=== PATIENT | female | born 1965 | race Caucasian/White ===

== ENCOUNTER 2021-10-03 16:22 | Inpatient (IN) ==
--- NOTE | 2021-10-03 16:27 | DR.GENAD ---
HPI Time Seen Time Seen by Provider: 10/03/21 16:27 HPI Comment HPI Comment: PATIENT IS 56YR OLD FEMALE IN ER WITH FEVER, NAUSEA, VOMITING AND LEFT FLANK PAIN SINCE THIS AM. PAIN 9/10 RADIATING TO LOWER ABDOMEN. NO DYSURIA. Complaint/Symptoms Chief Complaint Doctors Comments: FEVER, NAUSEA, VOMITING AND LEFT FLANK PAIN SINCE THIS AM. COVID-19 Coronavirus risk:travel/contact w/high risk person: No Has patient experienced Coronavirus symptoms: Yes Coronavirus symptoms experienced: Fever Nurses notes reviewed Nurses Notes Review: Yes Source History Provided: Patient Mode of Arrival Mode of Arrival: Ambulatory Timing Came on: Suddenly Duration Duration: Constant Duration: Hours Location Location: LT FLANK Severity Severity: Moderate Modifying Factors Worsens:: MOVEMENT Improves:: LYING STILL. Associated Signs and Symptoms Associated Signs and Symptoms: NAUSEA. PMH Travel Risk Coronavirus risk:travel/contact w/high risk person: No Has patient experienced Coronavirus symptoms: Yes Coronavirus symptoms experienced: Fever ROS Review of Systems Constitutional: No Symptoms Reported and See HPI; negative Fever, Weakness and Fatigue Eyes: No Symptoms Reported and See HPI ENTM: No Symptoms Reported and See HPI; negative Nose Discharge and Nose Congestion Respiratoy: No Symptoms Reported and See HPI; negative Moist Cough, Short of Breath and Wheezing Cardiovascular: No Symptoms Reported and See HPI; negative Chest Pain Gastrointestinal/Abdominal: See HPI, Nausea and Vomiting; negative Abdominal Pain and Diarrhea Genitourinary: See HPI and Pain (LEFT FLANK PAIN.); negative Dysuria Neurological: No Symptoms Reported and See HPI; negative Headache, Weakness and Dizziness Musculoskeletal: See HPI and Back Pain (LEFT FLANK PAIN.) Integumentary: No Symptoms Reported and See HPI; negative Rash Hematologic/Lymphatic: No Symptoms Reported and See HPI; negative Easy Bruising Endocrine: No Symptoms Reported and See HPI; negative Increased Thirst and I ncreased Urine Psychiatric: No Symptoms Reported and See HPI All Other Systems: Reviewed and Negative PE Vital Signs Vitals: Temperature 103 F Pulse Rate 100 Respiratory Rate 18 Blood Pressure 135/98 O2 Sat by Pulse Oximetry 95 General Limitations: No Limitations General Appearance: Alert and In No Apparent Distress Head Head Exam: Normal Inspection Eyes Eye exam: Normal Appearance; negative Scleral Icterus and Conjunctival Injection ENT ENT Exam: Normal Exam, Normal Oropharynx, Normal External Ear Exam and TM's Normal Bilaterally External Ear Exam: Normal External Inspection; negative Mastoid Tenderness TM/Canal Exam: Bilateral: Normal Nose Exam: Normal Nose Exam Mouth Exam: Normal Inspection; negative Lip Swelling and Tongue Swelling Throat Exam: Normal Inspection; negative Tonsillar Erythema, Tonsillomegaly and Tonsillar Exudate Neck Neck Exam: Normal Inspection and Trachea Midline; negative Tenderness Chest Chest Inspection: Normal Inspection and Symmetric Chest Wall Rise; negative Tenderness Respiratory Respiratory Exam: Normal Lung Sounds Bilat; negative Accessory Muscle Use, Chest Wall Tenderness and Respiratory Distress Respiratory Exam: Bilateral: Clear to Auscultation Cardiovascular Cardiovascular Exam: Regular Rate, Normal Rhythm and Normal Heart Sounds; negative Systolic Murmur and Diastolic Murmur Abdominal Exam Abdominal Exam: Normal Inspection, Normal Bowel Sounds, Soft and Tenderness Abdominal Tenderness: Suprapubic Extremities Extremities Exam: Normal Inspection and Normal Capillary Refill Back Back Exam: Normal Inspection and (L) CVA Tenderness; negative (R) CVA Tenderness Neurologic Neurological Exam: Alert, Oriented X3 and CN II-XII Intact; negative Motor Sensory Deficit Psychiatric Psychiatric Exam: Normal Affect and Normal Mood Skin Skin Exam: Dry MDM Differential Diagnosis Differential Diagnosis: FLANK PAIN, FEVER, KIDNEY STONE, UTI, UROSEPSIS. COURSE Treatment Treatment: SEE ORDERS DONE WHILE PATIENT WAS IN ER. TYLENOL 1GM IVPB, ZOFRAN 4MG IVAND MORPHIN 4MG IV GIVEN IN ER. PAIN IMPROVING. SENT TO [facility] FOR ABD/PELVIC CT. REPORT DISCUSSED WITH PATIENT. PATIENT ADMITED TO HOSPITAL FOR FURTHER MANAGEMENT. Reevaluation 1st: Improved Consultation Consultation Comments: DISCUSSED PATIENT WITH DR. TAVAREZ. HE WILL ADMIT PATIENT. Education/Counseling Education/Counseling: Patient Educated On: Diagnosis and Needs for Follow Up ROR Labs Reviewed Laboratory Results Reviewed?: Yes Result Diagrams: 10/05/21 03:50 10/05/21 03:50 Laboratory: 10/03/21 17:17 Blood Blood Culture - Final Proteus Mirabilis 10/03/21 17:25 Blood Blood Culture - Final Proteus Mirabilis WBC 21.8 X10^3/uL (3.6-10.0) H 10/03/21 17:26 RBC 5.26 X10^6/uL (3.5-5.4) 10/03/21 17:26 Hgb 14.6 g/dL (12.0-16.0) 10/03/21 17:26 Hct 43.9 % (36.0-47.0) 10/03/21 17: MCV 83.5 fL (80.0-100.0) 10/03/21: MCH 27.7 pg (27.0-34.0) 10/03/21: MCHC 33.2 g/dL (33.0-35.0) 10/03/21: RDW 15.4 % (11.6-16.5) 10/03/21: Plt Count 244 X10^3/uL (150.0-450.0) 10/03/21 17: Plt Count Comment Adequate (ADEQUATE) 10/03/21: MPV 7.7 fL (7.4-11.0) 10/03/21: Neut % (Auto) 95.3 % (42.0-75.0) H 10/03/21: Lymph % (Auto) 2.9 % (21.0-51.0) L 10/03/21: [place] % (Auto) 1.5 % (0.0-13.0) 10/03/21: Eos % (Auto) 0.0 % (0.9-2.9) L 10/03/21: Baso % (Auto) 0.3 % (0.2-1.0) 10/03/21: Neut # (Auto) 20.7 x10^3/uL (2.2-4.8) H 10/03/21: Lymph # (Auto) 0.6 X10^3/uL (1.3-2.9) L 10/03/21: [place] # (Auto) 0.3 x10^3/uL (0.3-0.8) 10/03/21: Eos # (Auto) 0.0 x10^3/uL (0.0-0.2) 10/03/21: Baso # (Auto) 0.1 X10^3/uL (0.0-0.1) 10/03/21: Absolute Nucleated RBC 0.1 /100WBC 10/03/21: Total Counted 100 10/03/21 17: Neutrophils % (Manual) 91 % (39-76) H 10/03/21 17:26 Lymphocytes % (Manual) 9 % (13-43) L 10/03/21 17:26 Plt Morphology Comment Normal (NORMAL) 10/03/21 17:26 RBC Morphology Normal (NORMAL) 10/03/21 17:26 Sodium 139 mmol/L (136-145) 10/03/21 17:26 Corrected Sodium 140 mmol/L (136-145) 10/03/21 17:26 Potassium 3.4 mmol/L (3.5-5.1) L 10/03/21 17:26 Chloride 105 mmol/L (98-107) 10/03/21 17:26 Carbon Dioxide 23.4 mmol/L (21-32) 10/03/21 17:26 BUN 15 mg/dL (7-18) 10/03/21 17:26 Creatinine 1.27 mg/dL (0.55-1.02) H 10/03/21 17:26 Est GFR (MDRD) Af Amer 56 (>60) L 10/03/21 17:26 Est GFR (MDRD) Non-Af 46 (>60) L 10/03/21 17:26 Glucose 159 mg/dL (65-99) H 10/03/21 17:26 Lactic Acid 2.4 mmol/L (0.4-2.0) H 10/03/21 17:26 Calcium 8.6 mg/dL (8.5-10.1) 10/03/21 17:26 Corrected Calcium TNP 10/03/21 17:26 Total Bilirubin 0.60 mg/dL (0.2-1.0) 10/03/21 17:26 AST 18 Units/L (15-37) 10/03/21 17:26 ALT 25 Units/L (12-78) 10/03/21 17:26 Alkaline Phosphatase 135 Units/L (46-116) H 10/03/21 17:26 Total Protein 6.9 g/dL (6.4-8.2) 10/03/21 17:26 Albumin 3.4 g/dL (3.4-5.0) 10/03/21 17:26 Globulin 3.5 g/dL (2.5-4.5) 10/03/21 17:26 Albumin/Globulin Ratio 1.0 Ratio (1.1-2.1) L 10/03/21 17: Amylase 49 Units/L (25-115) 10/03/21 17: Lipase 79 Units/L (73-393) 10/03/21 17:26 Specimen Type Clean catch urine 10/03/21 18:33 Urine Color Yellow (YELLOW) 10/03/21 18:33 Urine Appearance Clear (CLEAR) 10/03/21 18: Urine pH 5.0 (5.0 - 8.0) 10/03/21 18:33 Ur Specific [place] 1.015 (1.000-1.030) 10/03/21 18:33 Urine Protein 3+ (NEGATIVE) 10/03/21 18:33 Urine Glucose (UA) Negative (NEGATIVE) 10/03/21 18: Urine Ketones 1+ (NEGATIVE) 10/03/21 18:33 Urine Occult Blood 4+ (NEGATIVE) 10/03/21 18:33 Urine Nitrite Negative (NEGATIVE) 10/03/21 18:33 Urine Bilirubin Negative (NEGATIVE) 10/03/21 18:33 Urine Urobilinogen Normal (NORMAL) 10/03/21 18:33 Ur Leukocyte Esterase Negative (NEGATIVE) 10/03/21 18:33 Urine RBC 10-20 /HPF (0-3) A 10/03/21 18:33 Urine WBC 3-5 /HPF (0-5) 10/03/21 18:33 Ur Squamous Epith Cells Few /HPF (NEGATIVE) 10/03/21 18:33 Urine Bacteria Trace /HPF (NEGATIVE) 10/03/21 18:33 Ur Culture Indicated? No/not indicated 10/03/21 18:33 SARS-CoV-2 (PCR) Negative (NEGATIVE) 10/03/21 17:11 Influenza Type A (PCR) Negative (NEGATIVE) 10/03/21 17:11 Influenza Type B (PCR) Negative (NEGATIVE) 10/03/21 17:11 RSV (PCR) Negative (NEGATIVE) 10/03/21 17:11 Other Results Comments: REPORT OF CT ABD AND PELVIS IS NOTED. PATIENT WAS SENT TO [facility] IN [place] FOR CT. SEE SCAN REPORT ON RECORD. XRAY XRAY Interpreted by: Radiologist (XRAY CHEST REPORT NOTED.) Opioid Opioid Risk Tool Age (Paulo box if 16-45): No History of Preadolescent Sexual Abuse: No Total: 0 Total Score Risk Category: Low Risk Copyright: Aldrich LR predicting aberrant behaviors Diagnosis Discharge Problem: Acute pyelonephritis, Kidney stone, Left flank pain
[2021-10-03 16:29] VITALS: BMI 45.3
[2021-10-03] MEDS ORDERED: ZOFRAN INJ 4 MG VIAL IVP ONE (16:59)
[2021-10-03] MEDS ORDERED: NS 1,000 ML IV 1,000 ML IV ONE (16:59)
[2021-10-03] MEDS ORDERED: OFIRMEV IV 1000 MG VIAL 1,000 MG/100 ML VIAL IV ONE ×2 (17:04→17:08)
[2021-10-03] MEDS ORDERED: ZOFRAN INJ 4 MG VIAL ONE (17:08)
[2021-10-03] MEDS ORDERED: NS 1,000 ML IV 1,000 ML ONE ×2 (17:09→19:32)
[2021-10-03 17:41] LABS: BASOPHILS # (AUTO) 0.1 X10^3/uL (0.0-0.1); BASOPHILS % (AUTO) 0.3 % (0.2-1.0); HEMATOCRIT 43.9 % (36.0-47.0); HEMOGLOBIN 14.6 g/dL (12.0-16.0); LYMPHOCYTES # (AUTO) 0.6 X10^3/uL (1.3-2.9); LYMPHOCYTES % (AUTO) 2.9 % (21.0-51.0); MEAN CORPUSCULAR HEMOGLOBIN 27.7 pg (27.0-34.0); MEAN CORPUSCULAR HGB CONC 33.2 g/dL (33.0-35.0); MEAN CORPUSCULAR VOLUME 83.5 fL (80.0-100.0); MEAN PLATELET VOLUME 7.7 fL (7.4-11.0); MONOCYTES # (AUTO) 0.3 x10^3/uL (0.3-0.8); MONOCYTES % (AUTO) 1.5 % (0.0-13.0); NEUTROPHILS # (AUTO) 20.7 x10^3/uL (2.2-4.8); NEUTROPHILS % (AUTO) 95.3 % (42.0-75.0); RED BLOOD COUNT 5.26 X10^6/uL (3.5-5.4); RED CELL DISTRIBUTION WIDTH 15.4 % (11.6-16.5); WHITE BLOOD COUNT 21.8 X10^3/uL (3.6-10.0)
[2021-10-03 18:05] LABS: PLATELET MORPHOLOGY COMMENT NORMAL (NORMAL)
[2021-10-03] MEDS ORDERED: ZOSYN VIAL 3.375 GRAMS 3.375 G in NS 100 ML IV 100 ML IV ONE (18:51)
[2021-10-03] MEDS ORDERED: MORPHINE SULFATE INJ 4 MG IVP ONE ×2 (18:51→22:35)
[2021-10-03 18:54] LABS: BILIRUBIN,URINE NEGATIVE (NEGATIVE); BLOOD/HEMOGLOBIN,URINE 4+ (NEGATIVE); GLUCOSE, URINE NEGATIVE (NEGATIVE); KETONES,URINE 1+ (NEGATIVE); LEUKOCYTE ESTERASE ,URINE NEGATIVE (NEGATIVE); NITRITES,URINE NEGATIVE (NEGATIVE); PROTEIN,URINE 3+ (NEGATIVE); UROBILINOGEN,URINE NORMAL (NORMAL)
[2021-10-03 18:58] LABS: APPEARANCE,URINE CLEAR (CLEAR); BACTERIA,URINE TRACE /HPF (NEGATIVE); COLOR,URINE YELLOW (YELLOW); SQUAMOUS EPITHELIAL CELL,UR FEW /HPF (NEGATIVE)
[2021-10-03] MEDS ORDERED: MORPHINE SULFATE INJ 4 MG ONE (19:01)
[2021-10-03] MEDS ORDERED: ZOSYN VIAL 3.375 GRAMS IV ONE (19:01)
[2021-10-03] MEDS ORDERED: NS 100 ML IV 100 ML ONE (19:01)
[2021-10-03 19:28] LABS: LACTIC ACID 2.4 mmol/L (0.4-2.0)
[2021-10-03 19:30] LABS: ALANINE AMINOTRANSFERASE 25 Units/L (12-78); ALBUMIN 3.4 g/dL (3.4-5.0); ALKALINE PHOSPHATASE 135 Units/L (46-116); AMYLASE 49 Units/L (25-115); ASPARTATE AMINO TRANSFERASE 18 Units/L (15-37); BLOOD UREA NITROGEN 15 mg/dL (7-18); CALCIUM 8.6 mg/dL (8.5-10.1); CARBON DIOXIDE 23.4 mmol/L (21-32); CHLORIDE 105 mmol/L (98-107); COR NA(FOR HYPERGLY) 140 mmol/L (136-145); CREATININE 1.27 mg/dL (0.55-1.02); LIPASE 79 Units/L (73-393); SODIUM 139 mmol/L (136-145); TOTAL PROTEIN 6.9 g/dL (6.4-8.2); eGFR NON BLACK RACES 46 (>60)
[2021-10-03] MEDS: NS 1,000 ML IV 1,000 ML IV SCH (19:41)
[2021-10-03] MEDS ORDERED: TORADOL 30 MG VIAL IVP ONE (22:41)
[2021-10-03] MEDS ORDERED: TORADOL 30 MG VIAL ONE (22:42)
[2021-10-04] MEDS ORDERED: NS 1,000 ML IV 1,000 ML ONE (04:09)
[2021-10-04] MEDS: NS 1,000 ML IV 1,000 ML IV SCH ×2 (04:15→04:16)
[2021-10-04] MEDS ORDERED: PHARMACY CONSULT - VANCOMYCIN XX SCH (05:00)
[2021-10-04] MEDS ORDERED: ROCEPHIN VIAL 2 GRAMS 2 G in NS 100 ML IV 100 ML IV ONE (05:09)
[2021-10-04] MEDS ORDERED: NS 100 ML IV 100 ML ONE (05:17)
[2021-10-04] MEDS ORDERED: ROCEPHIN VIAL 2 GRAMS ONE (05:17)
--- NOTE | 2021-10-04 05:21 | RAD ---
HISTORYFEVER Relevant Clinical InformationSTUDYCHEST, 1 VIEWCOMPARISONNoneFINDINGSThe trachea is midline. The cardiac silhouette is unremarkable. The lungs are clear without focal infiltrate or effusion. Pulmonary vasculature within normal limits. No pneumothorax. The bony thorax is unremarkable.IMPRESSIONNo acute cardiopulmonary findings .Electronically signed by: Jerry Oropeza (Oct 04, 2021 05:20:19)
[2021-10-04 05:28] LABS: BASOPHILS % (AUTO) 0.1 % (0.2-1.0); HEMATOCRIT 36.9 % (36.0-47.0); HEMOGLOBIN 12.4 g/dL (12.0-16.0); LYMPHOCYTES # (AUTO) 0.7 X10^3/uL (1.3-2.9); MEAN CORPUSCULAR HEMOGLOBIN 27.8 pg (27.0-34.0); MEAN CORPUSCULAR HGB CONC 33.5 g/dL (33.0-35.0); MEAN CORPUSCULAR VOLUME 82.9 fL (80.0-100.0); MEAN PLATELET VOLUME 8.3 fL (7.4-11.0); MONOCYTES # (AUTO) 0.6 x10^3/uL (0.3-0.8); MONOCYTES % (AUTO) 2.7 % (0.0-13.0); NEUTROPHILS # (AUTO) 22.1 x10^3/uL (2.2-4.8); NEUTROPHILS % (AUTO) 94.2 % (42.0-75.0); RED BLOOD COUNT 4.45 X10^6/uL (3.5-5.4); RED CELL DISTRIBUTION WIDTH 15.2 % (11.6-16.5); WHITE BLOOD COUNT 23.5 X10^3/uL (3.6-10.0)
[2021-10-04 06:02] LABS: ALBUMIN 2.8 g/dL (3.4-5.0); CALCIUM 8.3 mg/dL (8.5-10.1); CARBON DIOXIDE 21.7 mmol/L (21-32); COR CA(FOR HYPOALB) 9.3 mg/dL (8.5-10.1); CREATININE 1.87 mg/dL (0.55-1.02)
[2021-10-04] MEDS ORDERED: NS + KCL 20 MEQ/L 1,000 ML IV ONE ×2 (06:11→14:59)
[2021-10-04] MEDS: NS + KCL 20 MEQ/L 1,000 ML IV SCH ×3 (06:13→23:45)
[2021-10-04 06:32] LABS: PLATELET MORPHOLOGY COMMENT NORMAL (NORMAL)
[2021-10-04] MEDS ORDERED: VANCOMYCIN IV *PREMIX 1.5 G/300 ML BAG 1.5 G/300 ML PIGGYBACK IV ONE (08:10)
[2021-10-04] MEDS: VSL#3 PO SCH (08:19)
[2021-10-04] MEDS ORDERED: VANCOMYCIN IV *PREMIX 1.5 G/300 ML BAG 1.5 G/300 ML PIGGYBACK IV SCH (09:00)
[2021-10-04] MEDS ORDERED: VANCOMYCIN IV *PREMIX 1 G/200 ML BAG 1 G/200 ML PIGGYBACK IV SCH (09:00)
[2021-10-04] MEDS ORDERED: VANCOMYCIN IV *PREMIX 2 G/400 ML BAG 2 G/400 ML PIGGYBACK IV SCH (09:00)
[2021-10-04 11:43] LABS: BILIRUBIN,URINE NEGATIVE (NEGATIVE); BLOOD/HEMOGLOBIN,URINE 1+ (NEGATIVE); GLUCOSE, URINE NEGATIVE (NEGATIVE); KETONES,URINE NEGATIVE (NEGATIVE); LEUKOCYTE ESTERASE ,URINE NEGATIVE (NEGATIVE); NITRITES,URINE NEGATIVE (NEGATIVE); PROTEIN,URINE 2+ (NEGATIVE); UROBILINOGEN,URINE NORMAL (NORMAL)
[2021-10-04 12:06] LABS: APPEARANCE,URINE CLEAR (CLEAR); COLOR,URINE YELLOW (YELLOW)
[2021-10-04 12:07] LABS: BACTERIA,URINE TRACE /HPF (NEGATIVE); RBC,URINE 0-2 /HPF (0-3); SQUAMOUS EPITHELIAL CELL,UR NUMEROUS /HPF (NEGATIVE)
[2021-10-04] MEDS ORDERED: OFIRMEV IV 1000 MG VIAL 1,000 MG/100 ML VIAL IV ONE ×2 (13:57→14:15)
[2021-10-04] MEDS ORDERED: TORADOL 30 MG VIAL IVP ONE (18:35)
[2021-10-04] MEDS ORDERED: NS 1,000 ML IV 1,000 ML IV ONE (19:06)
[2021-10-04 20:27] LABS: BASOPHILS # (AUTO) 0.1 X10^3/uL (0.0-0.1); EOSINOPHILS % (AUTO) 0.1 % (0.9-2.9); HEMOGLOBIN 11.7 g/dL (12.0-16.0); MEAN CORPUSCULAR VOLUME 83.2 fL (80.0-100.0); MONOCYTES # (AUTO) 0.8 x10^3/uL (0.3-0.8); RED CELL DISTRIBUTION WIDTH 15.6 % (11.6-16.5)
[2021-10-04 20:31] LABS: BASOPHILS % (AUTO) 0.2 % (0.2-1.0); HEMATOCRIT 34.7 % (36.0-47.0); LYMPHOCYTES # (AUTO) 1.3 X10^3/uL (1.3-2.9); LYMPHOCYTES % (AUTO) 4.6 % (21.0-51.0); MEAN CORPUSCULAR HGB CONC 33.7 g/dL (33.0-35.0); MEAN PLATELET VOLUME 8.5 fL (7.4-11.0); MONOCYTES % (AUTO) 2.9 % (0.0-13.0); NEUTROPHILS % (AUTO) 92.2 % (42.0-75.0); RED BLOOD COUNT 4.18 X10^6/uL (3.5-5.4); WHITE BLOOD COUNT 29.3 X10^3/uL (3.6-10.0)
[2021-10-04 20:32] LABS: CALCIUM 8.2 mg/dL (8.5-10.1); CARBON DIOXIDE 23.1 mmol/L (21-32)
[2021-10-04 20:45] LABS: LACTIC ACID 1.8 mmol/L (0.4-2.0)
[2021-10-04 21:17] LABS: PLATELET MORPHOLOGY COMMENT NORMAL (NORMAL)
[2021-10-04] MEDS: TYLENOL 500 MG TAB EXTRA STRENGTH PO PRN (21:45)
[2021-10-04] MEDS: TOBRAMYCIN SULFATE 120 MG in NS 100 ML IV 100 ML IV SCH (21:47)
[2021-10-04] MEDS: FLOMAX PO SCH (21:47)
[2021-10-05 04:59] LABS: BASOPHILS % (AUTO) 0.1 % (0.2-1.0); EOSINOPHILS # (AUTO) 0.1 x10^3/uL (0.0-0.2); EOSINOPHILS % (AUTO) 0.4 % (0.9-2.9); HEMATOCRIT 36.6 % (36.0-47.0); HEMOGLOBIN 12.1 g/dL (12.0-16.0); LYMPHOCYTES # (AUTO) 1.4 X10^3/uL (1.3-2.9); LYMPHOCYTES % (AUTO) 7.2 % (21.0-51.0); MEAN CORPUSCULAR HEMOGLOBIN 27.7 pg (27.0-34.0); MEAN CORPUSCULAR HGB CONC 33.1 g/dL (33.0-35.0); MEAN CORPUSCULAR VOLUME 83.5 fL (80.0-100.0); MEAN PLATELET VOLUME 8.8 fL (7.4-11.0); MONOCYTES # (AUTO) 0.2 x10^3/uL (0.3-0.8); NEUTROPHILS # (AUTO) 17.6 x10^3/uL (2.2-4.8); NEUTROPHILS % (AUTO) 91.3 % (42.0-75.0); RED BLOOD COUNT 4.38 X10^6/uL (3.5-5.4); RED CELL DISTRIBUTION WIDTH 15.6 % (11.6-16.5); WHITE BLOOD COUNT 19.3 X10^3/uL (3.6-10.0)
[2021-10-05] MEDS: ZOFRAN INJ 4 MG VIAL IVP PRN ×2 (05:05→18:15)
[2021-10-05 05:19] LABS: ALBUMIN 2.6 g/dL (3.4-5.0); CALCIUM 8.5 mg/dL (8.5-10.1); CARBON DIOXIDE 22.8 mmol/L (21-32); COR CA(FOR HYPOALB) 9.6 mg/dL (8.5-10.1); CREATININE 1.84 mg/dL (0.55-1.02); TOTAL PROTEIN 6.3 g/dL (6.4-8.2)
[2021-10-05 05:27] LABS: PLATELET MORPHOLOGY COMMENT NORMAL (NORMAL)
[2021-10-05] MEDS: NS + KCL 20 MEQ/L 1,000 ML IV SCH ×3 (06:48→15:23)
[2021-10-05] MEDS ORDERED: ROCEPHIN VIAL 2 GRAMS ONE (07:38)
[2021-10-05] MEDS ORDERED: NS 100 ML IV 100 ML ONE (07:39)
[2021-10-05] MEDS: VSL#3 PO SCH (08:00)
[2021-10-05] MEDS: FLOMAX PO SCH (08:00)
[2021-10-05] MEDS: TYLENOL 500 MG TAB EXTRA STRENGTH PO PRN (08:06)
[2021-10-05] MEDS ORDERED: ROCEPHIN VIAL 2 GRAMS 2 G in NS 100 ML IV 100 ML IV SCH (09:00)
[2021-10-05] MEDS ORDERED: NS 1,000 ML IV 1,000 ML ONE (10:11)
[2021-10-05] MEDS: TOBRAMYCIN SULFATE 120 MG in NS 100 ML IV 100 ML IV SCH (10:34)
--- NOTE | 2021-10-05 12:07 | DR.H&P ---
H&P - History & Physical for Day of: H&P Date: 10/03/21 - Chief Complaint Chief Complaint: LBP and fever - History of Present Illness History of Present Illness: Patient is a 56 year old WF who is being admitted due to kidney stone. Patient has a 3-4mm obstructing stone to left ureter. Kidney function mildly abnormal. Patient reports pain to right lower back. Patient reports fever and chills x 24 hours. Denies N/V/D, CP, SOB. PMH DM, obesity, HTN, HLD Hypothyroidism. Most recent set of labs from October 2020 (in our office system [facility]) reveals normal kidney function at that time. 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, Hysterectomy, Thyroidectomy - Family History Family Medical History: Cancer - Social History Does patient currently use any type of tobacco product: Yes Have you used tobacco products in the last 12 months: Yes Type of Tobacco Use: Cigarettes Alcohol Use: None Drug Use: None - Medications Home Medications: No Known Drug Allergies Allergy (Verified 10/03/21 16:29) CONTINUE taking the following medications amlodipine 2.5 mg PO DAILY 10/04/21 [History] fenofibrate nanocrystallized 145 mg PO DAILY 10/04/21 [History] levothyroxine 112 mcg PO DAILY 10/04/21 [History] loratadine 10 mg PO DAILY 10/04/21 [History] simvastatin 20 mg PO DAILY 10/04/21 [History] valsartan-hydrochlorothiazide 1 tab PO DAILY 10/04/21 [History] - Review of Systems Constitutional: See HPI Eyes: See HPI ENT: See HPI Respiratory: See HPI Cardiovascular: See HPI Gastrointestinal: See HPI Genitourinary: See HPI Musculoskeletal: See HPI Skin: See HPI Neurological: See HPI - Physical Exam Vital Signs: Temperature 100.1 F Pulse Rate [Radial] 123 Pulse Rate 100 Respiratory Rate 18 Blood Pressure [Left Arm] 119/62 Blood Pressure 135/98 O2 Sat by Pulse Oximetry 90 Oriented: Normal, Time, Person, Place Eyes: Normal Ear: Normal Nose: Normal Throat: Normal Respiratory: Clear Throughout Cardiovascular: Normal : Normal Auscultation: Bowel Sounds: Normal Palpation: Other (Left CVA tenderness) Tenderness: Normal Skin: Normal Musculoskeletal: Normal Psychiatric: Normal Mood Description: Calm Affect: Normal Speech Pattern: Clear, Appropriate - Assessment/Plan (1) Sepsis Status: Acute Plan: IV abx. Cultures pending. IV fluids. Sepsis protocol. Monitor fever (2) Acute renal failure Status: Acute (3) Diabetes mellitus type 2 in obese Status: Acute (4) Kidney stone Status: Acute (5) Left flank pain Status: Acute (6) Obesity Status: Acute - Allergies Allergies/Adverse Reactions: Allergies Allergy/AdvReac Type Severity Reaction Status Date / Time No Known Drug Allergies Allergy Verified 10/03/21 16:29
--- NOTE | 2021-10-05 12:26 | PCM.PROG ---
Progress Note - Progress Note for Day of Date of Exam: 10/04/21 - Subjective Subjective: Patient is a 56 year old white female who was admitted as per HPI. Blood cultures growing out gram negative rods; IV abx changed. Patient continues to have elevated fever. Kidney function slightly improved. Discussing with urologist regarding issues and possible transfer. - Past Medical Family Social History Past Med/Fam/Surg Hx: No changes since H&P Allergies: Allergies No Known Drug Allergies Allergy (Verified 10/03/21 16:29) - Review of Systems ROS: No change since H&P - Vital Signs and I&O's Vital Signs: Temperature 100.1 F Pulse Rate [Radial] 123 Pulse Rate 100 Respiratory Rate 18 Blood Pressure [Left Arm] 119/62 Blood Pressure 135/98 O2 Sat by Pulse Oximetry 90 Intake and Output: Intake & Output 10/02/21 10/03/21 10/04/21 10/05/21 23:59 23:59 23:59 23:59 Intake Total 2137 Balance 2137 - Physical Exam Oriented: Normal, Time, Person, Place Eyes: Normal Ear: Normal Nose: Normal Throat: Normal Respiratory: Normal Cardiovascular: Normal : Normal Auscultation: Bowel Sounds: Normal Palpation: Other (Left CVA tenderness) Tenderness: Normal Skin: Normal Musculoskeletal: Normal Psychiatric: Normal Mood Description: Calm Affect: Normal Speech Pattern: Clear, Appropriate - Laboratory and Diagnostics Result Diagrams: 10/05/21 03:50 10/05/21 03:50 Labs: 10/03/21 17:25 Blood Blood Culture - Preliminary 10/03/21 17:17 Blood Blood Culture - Preliminary Laboratory WBC 19.3 X10^3/uL (3.6-10.0) H D 10/05/21 03:50 RBC 4.38 X10^6/uL (3.5-5.4) 10/05/21 03:50 Hgb 12.1 g/dL (12.0-16.0) 10/05/21 03:50 Hct 36.6 % (36.0-47.0) 10/05/21 03:50 MCV 83.5 fL (80.0-100.0) 10/05/21 03:50 MCH 27.7 pg (27.0-34.0) 10/05/21 03:50 MCHC 33.1 g/dL (33.0-35.0) 10/05/21 03:50 RDW 15.6 % (11.6-16.5) 10/05/21 03:50 Plt Count 127 X10^3/uL (150.0-450.0) L 10/05/21 03:50 Plt Count Comment Decreased (ADEQUATE) A 10/05/21 03:50 MPV 8.8 fL (7.4-11.0) 10/05/21 03:50 Neut % (Auto) 91.3 % (42.0-75.0) H 10/05/21 03:50 Lymph % (Auto) 7.2 % (21.0-51.0) L 10/05/21 03:50 [place] % (Auto) 1.0 % (0.0-13.0) 10/05/21 03:50 Eos % (Auto) 0.4 % (0.9-2.9) L 10/05/21 03:50 Baso % (Auto) 0.1 % (0.2-1.0) L 10/05/21 03:50 Neut # (Auto) 17.6 x10^3/uL (2.2-4.8) H 10/05/21 03:50 Lymph # (Auto) 1.4 X10^3/uL (1.3-2.9) 10/05/21 03:50 [place] # (Auto) 0.2 x10^3/uL (0.3-0.8) L 10/05/21 03:50 Eos # (Auto) 0.1 x10^3/uL (0.0-0.2) 10/05/21 03:50 Baso # (Auto) 0.0 X10^3/uL (0.0-0.1) 10/05/21 03:50 Absolute Nucleated RBC 0.1 /100WBC 10/05/21 03:50 Total Counted 100 10/05/21 03:50 Neutrophils % (Manual) 92 % (39-76) H 10/05/21 03:50 Lymphocytes % (Manual) 7 % (13-43) L 10/05/21 03:50 Monocytes % (Manual) 1 % (4-9) L 10/05/21 03:50 Plt Morphology Comment Normal (NORMAL) 10/05/21 03:50 RBC Morphology Normal (NORMAL) 10/05/21 03:50 Sodium 141 mmol/L (136-145) 10/05/21 03:50 Corrected Sodium 142 mmol/L (136-145) 10/05/21 03:50 Potassium 3.9 mmol/L (3.5-5.1) 10/05/21 03:50 Chloride 107 mmol/L (98-107) 10/05/21 03:50 Carbon Dioxide 22.8 mmol/L (21-32) 10/05/21 03:50 BUN 26 mg/dL (7-18) H 10/05/21 03:50 Creatinine 1.84 mg/dL (0.55-1.02) H 10/05/21 03:50 Est GFR (MDRD) Af Amer 37 (>60) L 10/05/21 03:50 Est GFR (MDRD) Non-Af 30 (>60) L 10/05/21 03:50 Glucose 128 mg/dL (65-99) H 10/05/21 03:50 POC Glucose (mg/dL) 143 mg/dL (65-99) H 10/05/21 11:12 Lactic Acid 1.9 mmol/L (0.4-2.0) 10/05/21 03:50 Calcium 8.5 mg/dL (8.5-10.1) 10/05/21 03:50 Corrected Calcium 9.6 mg/dL (8.5-10.1) 10/05/21 03:50 Total Bilirubin 0.60 mg/dL (0.2-1.0) 10/05/21 03:50 AST 50 Units/L (15-37) H 10/05/21 03:50 ALT 33 Units/L (12-78) 10/05/21 03:50 Alkaline Phosphatase 132 Units/L (46-116) H 10/05/21 03:50 Total Protein 6.3 g/dL (6.4-8.2) L 10/05/21 03:50 Albumin 2.6 g/dL (3.4-5.0) L 10/05/21 03:50 Globulin 3.7 g/dL (2.5-4.5) 10/05/21 03:50 Albumin/Globulin Ratio 0.7 Ratio (1.1-2.1) L 10/05/21 03:50 Amylase 49 Units/L (25-115) 10/03/21 17:26 Lipase 79 Units/L (73-393) 10/03/21 17:26 Specimen Type Clean catch urine 10/04/21 11:34 Urine Color Yellow (YELLOW) 10/04/21 11:34 Urine Appearance Clear (CLEAR) 10/04/21 11:34 Urine pH 5.0 (5.0 - 8.0) 10/04/21 11:34 Ur Specific [place] 1.015 (1.000-1.030) 10/04/21 11:34 Urine Protein 2+ (NEGATIVE) 10/04/21 11:34 Urine Glucose (UA) Negative (NEGATIVE) 10/04/21 11:34 Urine Ketones Negative (NEGATIVE) 10/04/21 11:34 Urine Occult Blood 1+ (NEGATIVE) 10/04/21 11:34 Urine Nitrite Negative (NEGATIVE) 10/04/21 11:34 Urine Bilirubin Negative (NEGATIVE) 10/04/21 11:34 Urine Urobilinogen Normal (NORMAL) 10/04/21 11:34 Ur Leukocyte Esterase Negative (NEGATIVE) 10/04/21 11:34 Urine RBC 0-2 /HPF (0-3) 10/04/21 11:34 Urine WBC 3-5 /HPF (0-5) 10/04/21 11:34 Ur Squamous Epith Cells Numerous /HPF (NEGATIVE) 10/04/21 11:34 Urine Bacteria Trace /HPF (NEGATIVE) 10/04/21 11:34 Urine Mucus Few /HPF (NEGATIVE) 10/04/21 11:34 Ur Culture Indicated? No/not indicated 10/04/21 11:34 SARS-CoV-2 (PCR) Negative (NEGATIVE) 10/03/21 17:11 Influenza Type A (PCR) Negative (NEGATIVE) 10/03/21 17:11 Influenza Type B (PCR) Negative (NEGATIVE) 10/03/21 17:11 RSV (PCR) Negative (NEGATIVE) 10/03/21 17:11 - Plan (1) Sepsis Status: Acute Plan: IV abx. Cultures pending. IV fluids. Sepsis protocol. Monitor fever (2) Acute renal failure Status: Acute (3) Diabetes mellitus type 2 in obese Status: Acute (4) Kidney stone Status: Acute (5) Left flank pain Status: Acute (6) Obesity Status: Acute
--- NOTE | 2021-10-05 12:58 | PCM.PROG ---
Progress Note - Subjective Subjective: Patient is a 56 year old white female who was admitted as per HPI. Blood cultures growing out gram negative rods. Fever has improved. Kidney function slightly improved. Plan for transfer to another facility for urology eval when bed avaiable; reached out to [facility] (no bed); pending response from [facility] in [place] and [place]. No other concerns at present. - Past Medical Family Social History Past Med/Fam/Surg Hx: No changes since H&P Allergies: Allergies No Known Drug Allergies Allergy (Verified 10/03/21 16:29) - Review of Systems ROS: No change since H&P - Vital Signs and I&O's Vital Signs: Temperature 100.1 F Pulse Rate [Radial] 123 Pulse Rate 100 Respiratory Rate 18 Blood Pressure [Left Arm] 119/62 Blood Pressure 135/98 O2 Sat by Pulse Oximetry 90 Intake and Output: Intake & Output 10/02/21 10/03/21 10/04/21 10/05/21 23:59 23:59 23:59 23:59 Intake Total 2137 Balance 2137 - Physical Exam Oriented: Normal, Time, Person, Place Eyes: Normal Ear: Normal Nose: Normal Throat: Normal Respiratory: Normal Cardiovascular: Normal : Normal Auscultation: Bowel Sounds: Normal Tenderness: Normal Skin: Normal Musculoskeletal: Normal Psychiatric: Normal Mood Description: Calm Affect: Normal Speech Pattern: Clear, Appropriate - Laboratory and Diagnostics Result Diagrams: 10/05/21 03:50 10/05/21 03:50 Labs: 10/03/21 17:25 Blood Blood Culture - Preliminary 10/03/21 17:17 Blood Blood Culture - Preliminary Laboratory WBC 19.3 X10^3/uL (3.6-10.0) H D 10/05/21 03:50 RBC 4.38 X10^6/uL (3.5-5.4) 10/05/21 03:50 Hgb 12.1 g/dL (12.0-16.0) 10/05/21 03:50 Hct 36.6 % (36.0-47.0) 10/05/21 03:50 MCV 83.5 fL (80.0-100.0) 10/05/21 03:50 MCH 27.7 pg (27.0-34.0) 10/05/21 03:50 MCHC 33.1 g/dL (33.0-35.0) 10/05/21 03:50 RDW 15.6 % (11.6-16.5) 10/05/21 03:50 Plt Count 127 X10^3/uL (150.0-450.0) L 10/05/21 03:50 Plt Count Comment Decreased (ADEQUATE) A 10/05/21 03:50 MPV 8.8 fL (7.4-11.0) 10/05/21 03:50 Neut % (Auto) 91.3 % (42.0-75.0) H 10/05/21 03:50 Lymph % (Auto) 7.2 % (21.0-51.0) L 10/05/21 03:50 [place] % (Auto) 1.0 % (0.0-13.0) 10/05/21 03:50 Eos % (Auto) 0.4 % (0.9-2.9) L 10/05/21 03:50 Baso % (Auto) 0.1 % (0.2-1.0) L 10/05/21 03:50 Neut # (Auto) 17.6 x10^3/uL (2.2-4.8) H 10/05/21 03:50 Lymph # (Auto) 1.4 X10^3/uL (1.3-2.9) 10/05/21 03:50 [place] # (Auto) 0.2 x10^3/uL (0.3-0.8) L 10/05/21 03:50 Eos # (Auto) 0.1 x10^3/uL (0.0-0.2) 10/05/21 03:50 Baso # (Auto) 0.0 X10^3/uL (0.0-0.1) 10/05/21 03:50 Absolute Nucleated RBC 0.1 /100WBC 10/05/21 03:50 Total Counted 100 10/05/21 03:50 Neutrophils % (Manual) 92 % (39-76) H 10/05/21 03:50 Lymphocytes % (Manual) 7 % (13-43) L 10/05/21 03:50 Monocytes % (Manual) 1 % (4-9) L 10/05/21 03:50 Plt Morphology Comment Normal (NORMAL) 10/05/21 03:50 RBC Morphology Normal (NORMAL) 10/05/21 03:50 Sodium 141 mmol/L (136-145) 10/05/21 03:50 Corrected Sodium 142 mmol/L (136-145) 10/05/21 03:50 Potassium 3.9 mmol/L (3.5-5.1) 10/05/21 03:50 Chloride 107 mmol/L (98-107) 10/05/21 03:50 Carbon Dioxide 22.8 mmol/L (21-32) 10/05/21 03:50 BUN 26 mg/dL (7-18) H 10/05/21 03:50 Creatinine 1.84 mg/dL (0.55-1.02) H 10/05/21 03:50 Est GFR (MDRD) Af Amer 37 (>60) L 10/05/21 03:50 Est GFR (MDRD) Non-Af 30 (>60) L 10/05/21 03:50 Glucose 128 mg/dL (65-99) H 10/05/21 03:50 POC Glucose (mg/dL) 143 mg/dL (65-99) H 10/05/21 11:12 Lactic Acid 1.9 mmol/L (0.4-2.0) 10/05/21 03:50 Calcium 8.5 mg/dL (8.5-10.1) 10/05/21 03:50 Corrected Calcium 9.6 mg/dL (8.5-10.1) 10/05/21 03:50 Total Bilirubin 0.60 mg/dL (0.2-1.0) 10/05/21 03:50 AST 50 Units/L (15-37) H 10/05/21 03:50 ALT 33 Units/L (12-78) 10/05/21 03:50 Alkaline Phosphatase 132 Units/L (46-116) H 10/05/21 03:50 Total Protein 6.3 g/dL (6.4-8.2) L 10/05/21 03:50 Albumin 2.6 g/dL (3.4-5.0) L 10/05/21 03:50 Globulin 3.7 g/dL (2.5-4.5) 10/05/21 03:50 Albumin/Globulin Ratio 0.7 Ratio (1.1-2.1) L 10/05/21 03:50 Amylase 49 Units/L (25-115) 10/03/21 17:26 Lipase 79 Units/L (73-393) 10/03/21 17:26 Specimen Type Clean catch urine 10/04/21 11:34 Urine Color Yellow (YELLOW) 10/04/21 11:34 Urine Appearance Clear (CLEAR) 10/04/21 11:34 Urine pH 5.0 (5.0 - 8.0) 10/04/21 11:34 Ur Specific [employer] 1.015 (1.000-1.030) 10/04/21 11:34 Urine Protein 2+ (NEGATIVE) 10/04/21 11:34 Urine Glucose (UA) Negative (NEGATIVE) 10/04/21 11:34 Urine Ketones Negative (NEGATIVE) 10/04/21 11:34 Urine Occult Blood 1+ (NEGATIVE) 10/04/21 11:34 Urine Nitrite Negative (NEGATIVE) 10/04/21 11:34 Urine Bilirubin Negative (NEGATIVE) 10/04/21 11:34 Urine Urobilinogen Normal (NORMAL) 10/04/21 11:34 Ur Leukocyte Esterase Negative (NEGATIVE) 10/04/21 11:34 Urine RBC 0-2 /HPF (0-3) 10/04/21 11:34 Urine WBC 3-5 /HPF (0-5) 10/04/21 11:34 Ur Squamous Epith Cells Numerous /HPF (NEGATIVE) 10/04/21 11:34 Urine Bacteria Trace /HPF (NEGATIVE) 10/04/21 11:34 Urine Mucus Few /HPF (NEGATIVE) 10/04/21 11:34 Ur Culture Indicated? No/not indicated 10/04/21 11:34 SARS-CoV-2 (PCR) Negative (NEGATIVE) 10/03/21 17:11 Influenza Type A (PCR) Negative (NEGATIVE) 10/03/21 17:11 Influenza Type B (PCR) Negative (NEGATIVE) 10/03/21 17:11 RSV (PCR) Negative (NEGATIVE) 10/03/21 17:11 - Plan (1) Sepsis Status: Acute Plan: IV abx. Cultures pending. IV fluids. Sepsis protocol. Monitor fever (2) Acute renal failure Status: Acute (3) Kidney stone Status: Acute (4) Left flank pain Status: Acute (5) Diabetes mellitus type 2 in obese Status: Acute (6) Obesity Status: Acute
[2021-10-05] MEDS ORDERED: SYNTHROID 112 mcg TAB PO SCH (13:00)
[2021-10-05] MEDS ORDERED: CLARITIN PO SCH (13:00)
[2021-10-05 16:25] VITALS: BP 109/62
[2021-10-05] MEDS ORDERED: MORPHINE SULFATE INJ 4 MG IVP PRN (17:35)
[2021-10-05] MEDS ORDERED: ZOCOR TAB 20 MG PO SCH (21:00)
[2021-10-06] MEDS ORDERED: PHARMACY COMMENT IV SCH ×2 (08:30→10:00)
[2021-10-07] MEDS ORDERED: PHARMACY COMMENT IV NR (08:30)
--- NOTE | 2021-11-20 00:21 | PCM.DCPLAN ---
Discharge Plan - Discharge Plan Hospital Course: Admit date 10/03/21 Discharge date 10/05/21 DOS 10/05/21 Admit Diagnosis(1) Sepsis (2) Acute renal failure (3) Kidney stone (4) Left flank pain (5) Diabetes mellitus type 2 in obese (6) Obesity Discharge diagnosis(1) Sepsis (2) Acute renal failure (3) Kidney stone (4) Left flank pain (5) Diabetes mellitus type 2 in obese (6) Obesity Hospital course Patient is a 56 year old WF who is being admitted due to kidney stone. Patient has a 3-4mm obstructing stone to left ureter. Kidney function mildly abnormal. Patient reports pain to right lower back. Patient reports fever and chills x 24 hours. Denies N/V/D, CP, SOB. Most recent set of labs from October 2020 (in our office system [facility]) reveals normal kidney function at that time. Blood cultures growing out gram negative rods. Patient was treated with IV abx and IV fluids. Fever has improved. Kidney function slightly improved. Transferred to another facility for urology eval and intervention. Discharge time spent >60 mins Disposition: XF [facility] Condition: Stable Prescriptions: No Action amlodipine 2.5 mg tablet 2.5 mg PO DAILY fenofibrate nanocrystallized 145 mg tablet 145 mg PO DAILY levothyroxine 112 mcg tablet 112 mcg PO DAILY loratadine 10 mg tablet 10 mg PO DAILY simvastatin 20 mg tablet 20 mg PO DAILY valsartan-hydrochlorothiazide 320-25 mg tablet 1 tab PO DAILY - Orders to Discharge Patient Discharge Orders: Discharge by Transfer to Outside Facility (Routine); Ordered 10/05/21 Ordered By: JASE REED
== END 2021-10-05 18:29 | disposition short-term general hospital (02) | DRG 872 ==
LOC: ER 16:22 → U 10-04 00:44 → MED/SURG 10-04 14:45
PROVIDERS: ADMIT Obstetrics & Gynecology Obstetrics; ATTEND Internal Medicine
DX: E11.65 Type 2 diabetes mellitus with hyperglycemia; R65.20 Severe sepsis without septic shock; A41.89 Other specified sepsis; E78.2 Mixed hyperlipidemia; I10 Essential (primary) hypertension; N10 Acute pyelonephritis; N20.0 Calculus of kidney; M54.59 Other low back pain; Z20.822 Contact with and (suspected) exposure to COVID-19; E03.8 Other specified hypothyroidism